=== PATIENT | male | born 1980 | race Caucasian/White ===

== ENCOUNTER 2024-12-23 09:05 | Emergency (ER) | payer OTHER, SELFPAY ==
[2024-12-23 09:14] VITALS: BP 189/128
--- NOTE | 2024-12-23 09:55 | ED.GENMED ---
History of Present Illness
General
Chief Complaint: Blood Pressure Problem
Time Seen by Provider: 12/23/24 09:38
Nursing documentation reviewed up to this point in time: agreed with
History of Present Illness
History of Present Illness:
44-year-old male referred to the ER from his workplace for further evaluation of elevated blood pressure. Patient notes that over the past 3 weeks he has been intermittently experiencing lightheadedness or feeling generally off. He had his blood
pressure checked at work and it was found to be high. He followed up with his primary care office, [facility], had an EKG and was maintained on his dose of losartan. On Monday, he again experienced the symptoms at work and was found to be
very hypertensive. He followed up again with his primary care office, had a normal EKG and was given a new prescription for a blood pressure medication. He has not been able to take this medication as the pharmacy was out of stock. He states he
has been eating and drinking normally. He does not consume caffeine. He denies any alcohol use in the last 3 weeks. He denies any change in urine output. He reports a mild diffuse frontal headache waxing and waning over the past several days.
No focal weakness, no paresthesias. He takes allopurinol for his gout, no reported acute flares. He is unsure of his medication dosing. He does report that both of his parents had hypertension and his father of an VT before age 50. Patient
states he has been going to the gym with his 12-year-old son recently and has been able to complete his exercise without any shortness of breath, chest pain or limitation. Patient also has a history of sleep apnea and has been compliant with
wearing his CPAP
Past History
Past History
ED Past Medical History: None
ED Past Surgical History: None
Social History
Tobacco: Non-smoker
Review of Systems
Review of Systems
Allergies reviewed?: Yes
Phy Exam
Physical Exam
Physical Exam:
Patient is awake, alert, appears in no acute distress, head is NCAT, mild facial flushing noted, PERRL, EOMI mucous membranes moist, conjunctiva pink, no JVD, heart regular rate and rhythm without murmurs or ectopy, lungs are clear to auscultation
without wheezes rales or rhonchi, no JVD, abdomen is soft and nontender on palpation, extremities without edema, GCS is 15 moving all extremities symmetrically no focal deficit, speech is clear, no photophobia
Course
Orders/Labs/Results
Orders:
Orders
12/23/24 09:21
Electrocardiogram (*1) Urgent
Reason for Study: Chest Pain
EKG- Treatment ONCE
12/23/24 09:54
Acetaminophen [Tylenol] 1,000 mg PO NOW STA
12/23/24 09:55
CT Head W/o Iv Contrast Urgent
Comment:
Reason For Exam: headache, HTN
12/23/24 10:00
Complete Blood Count/With Diff Urgent
Comprehensive Metabolic Panel Urgent
12/23/24 10:40
Losartan [Cozaar] 100 mg PO NOW STA
12/23/24 11:00
Amlodipine [Norvasc] 5 mg PO DAILY
12/23/24 11:03
CR Chest - 2 Views Urgent
Comment:
Reason For Exam: dyspnea
Abnormal Lab Results
12/23/24
10:00
Monocytes % 9.6 H %
(1.7-9.3)
Glucose 108 H mg/dl
(70-99)
12/23/24 10:00
12/23/24 10:00
Labs very reassuring, normal CBC, kidney function preserved
Vital Signs
Initial and Last Documented VS:
Initial Vital Signs
Temp Pulse Resp BP Pulse Ox
98.5 F 77 16 189/128 99
12/23/24 09:14 12/23/24 09:14 12/23/24 09:14 12/23/24 09:14 12/23/24 09:14
Last Documented Vital Signs
Temp Pulse Resp BP Pulse Ox
98.5 F 55 10 147/106 97
12/23/24 09:14 12/23/24 13:00 12/23/24 13:00 12/23/24 13:00 12/23/24 12:45
MDM/Problems Addressed
Differential Diagnosis Includes:
Hypertensive urgency, acute kidney injury, anxiety, ACS along with other etiologies
Chronic conditions affecting care:
Hypertension, gout
*Radiology
Radiology exam reviewed: preliminary read by ED provider (I independently viewed and interpreted two-view chest x-ray showing no infiltrates, normal cardiac silhouette) and radiology read reviewed (I reviewed CT head read, no acute findings)
*Pulse Oximetry
SaO2: 99
Oxygen Mode of Delivery: Room air
Patient hypoxic: no
*EKG
Interpreted by ED Provider?: Yes (I independently viewed interpreted twelve-lead EKG showing sinus bradycardia, rate 58, normal axis, normal intervals, this is a normal tracing other than minor bradycardia, no prior for comparison)
*Sports Journalist Interpretation
Rate: bradycardiac (I independently viewed and interpreted rhythm strip showing sinus bradycardia, no ectopy)
*Critical Care Note
Total Time (30-74mins, 75-104mins- exclusive of procedures): Not Applicable
Update Note
Update Note:
Patient feeling comfortable throughout time in the emergency department. He was given Tylenol for his headache. I discussed with patient and present at bedside very reassuring workup including normal labs and negative CT of the head. I
discussed with patient need to take his blood pressure medication regularly. Pharmacist was able to contact [facility] pharmacy-he is supposed to be on telmisartan and amlodipine. He was given similar medications here today. I advised patient to
follow-up with his primary care physician and pharmacist to take his blood pressure medication routinely as he has not had any medicine this weekend. He felt comfortable plan for discharge and was also provided with cardiology referral information
given significant family history of his father dying earlier than age 50. Patient had no questions prior to leaving department.
ED Attending Note
-
Portions of this chart may have been created with voice recognition software.� Occasional wrong word or��sound alike� substitutions may have occurred due to the inherent limitations of voice recognition software.
Discharge Plan
Departure
Patient Disposition: Home (Routine Discharge)
Date of Disposition: 12/23/24
Time of Disposition: 12:58
Patient with high blood pressure during this ER visit?: Yes
Discharge Problem:
Hypertension
Instructions: High Blood Pressure (DC)
Prescriptions:
No Action
allopurinol 300 mg Tablet
300 mg PO QPM
telmisartan-amlodipine 80-5 mg Tablet
1 tab PO QPM
Patient Comments:
12/23/2024: Dr underwood prescribed... pt has not started yet.
rosuvastatin 20 mg Tablet
20 mg PO QPM
Referrals:
Wang Vasquez MD [Non-Admitting Privileges, Internal Medicine] - Next open appointment
Rupa Nuñez DO [Family Provider, Family Practice]
Activity Restrictions/Additional Instructions:
Please start taking telmisartan/amlodipine as prescribed by your doctor. Please follow-up with your doctor for reevaluation and further care.
Interventions
Interventions:
*Risk Screen - Suicide Last Done: 12/23/24 09:14
*Nursing Disposition Last Done: 12/23/24 13:19
ED- Cardiac Assessment Last Done: 12/23/24 10:10
ED- Neurological Assessment Last Done: 12/23/24 10:10
ED- Pulmonary Assessment Last Done: 12/23/24 10:10
Discharge Date and Time
Discharge Date/Time: 12/23/24 13:20
Print Language: SPANISH
[2024-12-23] MEDS: TYLENOL 1000 MG PO (10:00)
[2024-12-23 10:10] VITALS: BMI 38.0
[2024-12-23 10:36] LABS: ALT (SGPT) 34 U/L (0-50); AST (SGOT) 25 U/L (17-59); Albumin 5.0 g/dl (3.5-5.0); Alkaline Phosphatase 66 U/L (38-126); Blood Urea Nitrogen 18 mg/dl (9-20); Calcium 9.8 mg/dl (8.4-10.2); Carbon Dioxide 24 mmol/L (22-30); Chloride 107 mmol/L (98-107); Estimated Creatinine Clearance 122 ml/min; Glucose 108 mg/dl (70-99); Potassium 4.5 mmol/L (3.5-5.1); Sodium 140 mmol/L (135-145); Total Protein 7.9 g/dl (6.3-8.2); eGFR > 60.00
[2024-12-23 10:42] VITALS: BP 161/109
[2024-12-23 10:52] LABS: Hematocrit 47.0 % (39.0-52.0); Hemoglobin 16.4 g/dL (13.0-18.0); Mean Corp Hgb Conc. 34.9 g/dL (33.0-37.0); Mean Corpuscular Volume 88.5 fL (80.0-94.0); Nucleated Red Blood Cells % 0 % (-); Platelet Count 260 10^3/uL (130-400); Red Cell Dist. Width 11.9 % (11.5-14.5)
[2024-12-23] MEDS: COZAAR 100 MG PO (10:57)
[2024-12-23 10:58] VITALS: BP 158/113
[2024-12-23] MEDS: NORVASC 5 MG PO (10:59)
[2024-12-23 12:33] VITALS: BP 138/104
[2024-12-23 13:00] VITALS: BP 147/106
== END 2024-12-23 13:20 | disposition home or self-care (01) ==
LOC: EMR 09:05
PROVIDERS: EMERGENCY PHYSICIAN Emergency Medicine; FAMILY PHYSICIAN Family Medicine
DX: I10 Essential (primary) hypertension (principal); R42 Dizziness and giddiness; R51.9 Headache, unspecified; G47.30 Sleep apnea, unspecified; Z79.899 Other long term (current) drug therapy
CPT/HCPCS: 99285; 70450; 71046; 80053; 85025; 93005